=== PATIENT | female | born 1940 | race Caucasian/White ===

== ENCOUNTER 2018-09-01 06:26 | Inpatient (IN) | payer MEDICARE, OTHER ==
[~2018-09-01] VITALS: Ht 162.6 cm; Wt 90.7 kg
--- NOTE | 2018-09-01 06:35 | NUR ---
PT A/OX4, BIB RA909, C/O DIARRHEA SINCE LAST NIGHT (TOO MANY TO COUNT). PT REPORTS SHE WAS RECENTLY TESTED FOR C-DIFF AND WAS TOLD ON WEDNESDAY (08/29/18) THAT SHE WAS NEGATIVE FOR C-DIFF BY HER PCP. PT REPORTS NON-PROVOKED ABD PAIN, SHARP IN QUALITY, DOES NOT RADIATE, 02/28, CONSTANT. SECONDARY COMPLAINT: NAUSEA. 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 PT DENIES C/P, SOB, DIZZINESS, HEADACHE.
--- NOTE | 2018-09-01 06:38 | NUR ---
SUKHWINDER ISRAEL AT BEDSIDE FOR MSE.
[2018-09-01] MEDS ORDERED: SERT100T PO (06:48)
[2018-09-01] MEDS ORDERED: ATOR40TA PO (06:48)
[2018-09-01] MEDS ORDERED: OMEP40CA37 PO (06:48)
[2018-09-01] MEDS ORDERED: ONDANSETRON 4 MG/2 ML VIAL ONE ×2 (06:57→08:35)
--- NOTE | 2018-09-01 06:57 | NUR ---
SKIVER UPPERS OR LININGS AT BEDSIDE.
[2018-09-01] MEDS ORDERED: IV NORMAL SALINE 1000 ML BAG IV ONE (07:00)
[2018-09-01] MEDS ORDERED: ONDANSETRON 4 MG/2 ML VIAL IV ONE ×2 (07:00→09:00)
--- NOTE | 2018-09-01 07:03 | NUR ---
PT TAKEN TO RADIOLOGY FOR CT SCAN.
[2018-09-01 07:08] LABS: BASOPHILS % (AUTO) 0.3 % (0.0-2.0); EOSINOPHILS # (AUTO) 0.1 K/uL (0.0-0.7); EOSINOPHILS % (AUTO) 0.5 % (0.0-7.0); HEMATOCRIT 43.9 % (31.2-41.9); HEMOGLOBIN 14.8 g/dL (10.9-14.3); LYMPHOCYTES # (AUTO) 1.8 K/uL (20.0-40.0); MEAN CORPUSCULAR HEMOGLOBIN 28.8 uug (24.7-32.8); MEAN CORPUSCULAR HGB CONC 34 g/dL (32.3-35.6); MEAN CORPUSCULAR VOLUME 85.7 fL (75.5-95.3); MONOCYTES # (AUTO) 0.7 K/uL (2.0-10.0); MONOCYTES % (AUTO) 7.1 % (0.0-11.0); NEUTROPHILS # (AUTO) 7.6 K/uL (1.8-8.9); NEUTROPHILS % (AUTO) 74.1 % (38.5-71.5); PLATELET COUNT (AUTO) 206 K/uL (179-408); RED BLOOD CELL COUNT(AUTO) 5.13 MIL/uL (3.63-4.92); WHITE BLOOD COUNT (AUTO) 10.2 K/uL (3.8-11.8)
--- NOTE | 2018-09-01 07:10 | NUR ---
SHIFT REPORT GIVEN TO ADINA JOHNSON.
[2018-09-01 07:16] LABS: CARBON DIOXIDE 31 mmol/L (21-32); CHLORIDE 99 mmol/L (98-107); CREATININE 0.7 mg/dL (0.6-1.3); GLUCOSE 146 mg/dL (74-106); POTASSIUM 3.7 mmol/L (3.5-5.1); UREA NITROGEN, BLOOD 21 mg/dL (7-18)
[2018-09-01 07:22] LABS: ALANINE AMINOTRANSFERASE 54 U/L (14-59); ALKALINE PHOSPHATASE 90 U/L (50-136); ASPARTATE AMINOTRANSFERASE 29 U/L (15-37); BILIRUBIN,DIRECT 0.2 mg/dL (0.0-0.2); BILIRUBIN,TOTAL 0.6 mg/dL (0.2-1.0); LIPASE 84 U/L (73-393); TOTAL PROTEIN, SERUM 8.1 g/dL (6.4-8.2)
[2018-09-01 08:07] LABS: *BLOOD, URINE TRACE (NEGATIVE); *CLARITY,URINE CLEAR (CLEAR); *COLOR,URINE LIGHT YELLOW (YELLOW); UGLUCOSE NEGATIVE (NEGATIVE)
[2018-09-01 08:08] LABS: *BILIRUBIN,URIN NEGATIVE (NEGATIVE); *KETONES,URINE NEGATIVE (NEGATIVE); *UROBILINOGEN,URINE 0.2 E.U./dl (NORMAL); LEUKOCYTE ESTERASE ,URINE TRACE (NEGATIVE); NITRITE, URINE NEGATIVE (NEGATIVE)
[2018-09-01 08:15] LABS: BACTERIA,URINE FEW /HPF (NONE SEEN); RBC,URINE 0-3 /HPF (0-3); SQUAMOUS EPITHELIAL CELL,UR FEW /HPF (NONE SEEN)
[2018-09-01] MEDS ORDERED: MORPHINE SULFATE 2 MG/1 ML DISP.SYRIN ONE (08:35)
[2018-09-01] MEDS ORDERED: MORPHINE SULFATE 2 MG/1 ML DISP.SYRIN IV ONE (09:00)
--- NOTE | 2018-09-01 09:40 | NUR ---
pt transfered to floor in stable condition. pt deneid nausea or pain at this time. pt had ambulated to bathroom x2 with assisstance. pt did not have diarhea episode since 0700., while in er. pt friend at bedside the whole er stay.
[2018-09-01 10:00] VITALS: BP 145/60
--- NOTE | 2018-09-01 10:00 | NUR ---
PT RECEIVED TO CARE, STABLE, ABLE ANSWER QUESTIONS, PAIN IN ABDOMEN /10. VS ARE STABLE. PT IS AMBULATORY. DR. NAVARRO CONTACTED FOR ORDERS.
[2018-09-01] MEDS ORDERED: ACETAMINOPHEN 650 MG SUPP.RECT RC PRN (11:15)
[2018-09-01] MEDS ORDERED: MORPHINE SULFATE 2 MG/1 ML DISP.SYRIN IV PRN (11:15)
[2018-09-01] MEDS: IV D5 1/2 NS 1000 ML 1,000 ML IV PRN (12:48)
[2018-09-01] MEDS: ONDANSETRON 4 MG/2 ML VIAL IV PRN (13:19)
[2018-09-01 15:33] VITALS: BP 104/48
--- NOTE | 2018-09-01 18:00 | NUR ---
PT WAS ORDERED NG TUBE PLACEMENT WITH SUCTIONING. PT AGREED. PER DOCTOR RAMON, ORDERED TO PUT THE ORDER ON STAND BY, DEPENDING ON PATIENT'S CONDITION. NO VOMITING, NO BLOODEDNESS, NO PAIN AT THIS TIME. WILL CONTINUE TO MONITOR
[2018-09-01] MEDS ORDERED: PANTOPRAZOLE SODIUM 40 MG VIAL IV ONE (18:20)
[2018-09-01 20:15] VITALS: BP 103/49
[2018-09-01] MEDS: ALBUTEROL SULFATE 2.5 MG/3 ML NEBU NEB PRN (20:27)
[2018-09-02] MEDS: IV D5 1/2 NS 1000 ML 1,000 ML IV PRN (02:05)
[2018-09-02 06:16] VITALS: BP 105/52
--- NOTE | 2018-09-02 06:30 | NUR ---
PATIENT ASLEEP IN BED. EASILY AROUSABLE. SLEPT WELL. IVF INFUSING WELL. PATIENT KEPT NPO ORDERED. NO NAUSEA OR VOMITING NOTED THROUGHOUT THE NIGHT. NO NGT NOTED. DR. TREVIÑO AWARE. CALL LIGHT IN REACH. ALL NEEDS ATTENDED.
--- NOTE | 2018-09-02 07:00 | NUR ---
PATIENT RECEIVED SLEEPING IN BED NO DISTRESS NOTED IVF FLUIDS RUNNING, CALL LIGHT WITHIN REACH, SIDE RAILS UP X2 BED ALARM ON, CONTINUE TO MONITOR
[2018-09-02 07:06] LABS: BASOPHILS % (AUTO) 0.5 % (0.0-2.0); EOSINOPHILS # (AUTO) 0.1 K/uL (0.0-0.7); EOSINOPHILS % (AUTO) 1.4 % (0.0-7.0); HEMOGLOBIN 12.7 g/dL (10.9-14.3); LYMPHOCYTES # (AUTO) 2.6 K/uL (20.0-40.0); LYMPHOCYTES % (AUTO) 39.4 % (20.5-51.5); MEAN CORPUSCULAR HEMOGLOBIN 28.8 uug (24.7-32.8); MEAN CORPUSCULAR HGB CONC 34 g/dL (32.3-35.6); MEAN CORPUSCULAR VOLUME 86.1 fL (75.5-95.3); MONOCYTES # (AUTO) 0.5 K/uL (2.0-10.0); MONOCYTES % (AUTO) 7.4 % (0.0-11.0); NEUTROPHILS # (AUTO) 3.4 K/uL (1.8-8.9); NEUTROPHILS % (AUTO) 51.3 % (38.5-71.5); PLATELET COUNT (AUTO) 148 K/uL (179-408); RED BLOOD CELL COUNT(AUTO) 4.42 MIL/uL (3.63-4.92); WHITE BLOOD COUNT (AUTO) 6.7 K/uL (3.8-11.8)
[2018-09-02 07:12] LABS: ALANINE AMINOTRANSFERASE 37 U/L (14-59); ALKALINE PHOSPHATASE 74 U/L (50-136); ASPARTATE AMINOTRANSFERASE 26 U/L (15-37); BILIRUBIN,TOTAL 0.4 mg/dL (0.2-1.0); CARBON DIOXIDE 30 mmol/L (21-32); CHLORIDE 105 mmol/L (98-107); CREATININE 0.6 mg/dL (0.6-1.3); GLUCOSE 96 mg/dL (74-106); PHOSPHOROUS 4.7 mg/dL (2.5-4.9); POTASSIUM 3.9 mmol/L (3.5-5.1); UREA NITROGEN, BLOOD 13 mg/dL (7-18)
[2018-09-02 07:13] LABS: CHOLESTEROL 116 mg/dL (<200); HDL CHOLESTEROL 48 mg/dL (40-60); IRON, SERUM 40 ug/dL (50-175); TOTAL PROTEIN, SERUM 6.2 g/dL (6.4-8.2); TRIGLYCERIDES 91 MG/DL (30-150)
[2018-09-02 07:19] LABS: THYROID STIMULATING HORMONE 2.307 mIU/mL (0.358-3.740)
[2018-09-02] MEDS: ONDANSETRON 4 MG/2 ML VIAL IV PRN (08:45)
[2018-09-02 08:52] VITALS: BP 119/58
[2018-09-02] MEDS ORDERED: PANTOPRAZOLE SODIUM 40 MG VIAL IV SCH (09:00)
[2018-09-02] MEDS: ALBUTEROL SULFATE 2.5 MG/3 ML NEBU NEB PRN ×2 (09:09→18:09)
[2018-09-02] MEDS ORDERED: DIATR MEGLU/DIATRIZOATE SODIUM 30 ML SOLUTION ONE (09:16)
[2018-09-02 11:33] VITALS: BP 94/46
--- NOTE | 2018-09-02 12:00 | NUR ---
PATIENT ASSISTED TO BATH ROOM ABLE TO VERBALIZE NEEDS, DENIES ANY PAIN, NO N/V AT THIS TIME CONTINUE TO MONITOR
[2018-09-02] MEDS ORDERED: RANI150T43 PO (15:03)
[2018-09-02 15:33] VITALS: BP 94/46
--- NOTE | 2018-09-02 16:20 | NUR ---
PATIENT FREQUENTLY AMBULATING TO VOID AND HAVE BOWEL MOVEMENTS TODAY. PATIENT IV LINE INFILTRATED. MINIMAL SWELLING NOTED. DR NAVARRO NOTIFIED, STARTED ON FULL LIQUID DIET , PER MD D/S IV FLUIDS.
[2018-09-02 18:12] VITALS: BP 94/50
--- NOTE | 2018-09-02 18:29 | NUR ---
NO NG TUBE NEEDED AT THIS TIME, PER MD NO N/V CONTINUE TO MONITOR
--- NOTE | 2018-09-02 20:00 | NUR ---
RECEIVED PATIENT AWAKE IN BED WITH VISITORS AT BEDSIDE. PATIENT IS A/O X4. DENIES PAIN. NO RESP. DISTRESS NOTED. VSS. CALL LIGHT IN REACH. ALL NEEDS ATTENDED.
[2018-09-02 20:13] VITALS: BP 99/52
[2018-09-02] MEDS ORDERED: Z GUARD REMEDY PASTE 57 GM TUBE TOP PRN (22:15)
[2018-09-03] MEDS ORDERED: ACETAMINOPHEN 325 MG TABLET PO PRN (04:00)
[2018-09-03 06:22] VITALS: BP 100/39
--- NOTE | 2018-09-03 07:32 | NUR ---
PATIENT RESTING COMFORTABLY IN BED AT THIS TIME. NO SIGNS OF DISTRESS AT THIS TIME. CONTACT ISOLATION IMPLEMENTED FOR C.DIFF PRECAUTION. STABLE CONDITION. CALL LIGHT WITHIN REACH OF PATIENT. SAFETY MEASURES IMPLEMENTED. WILL CONTINUE TO MONITOR THROUGHOUT SHIFT.
[2018-09-03] MEDS: PANTOPRAZOLE SODIUM 40 MG TABLET.DR PO SCH (10:11)
[2018-09-03 11:06] VITALS: BP 110/44
[2018-09-03 15:14] VITALS: BP 105/53
[2018-09-03] MEDS: VANCOMYCIN FOR PO/GT/NG USE PO SCH (18:35)
--- NOTE | 2018-09-03 19:47 | NUR ---
RECEIVED PATIENT AWAKE AND ALERT IN BED. NO SIGNS OF ACUTE DISTRESS NOTED. PATIENT IS ON CONTACT ISOLATION FOR C.DIFF. NO COMPLAINTS OF PAIN OR SOB. DR. TREVIÑO IS AT BEDSIDE SPEAKING TO PATIENT. SAFETY MEASURES INITIATED. CALL LIGHT IS WITHIN REACH, BED IS LOW AND LOCKED. WILL CONTINUE TO MONITOR.
[2018-09-03 20:09] VITALS: BP 114/66
[2018-09-04] MEDS: VANCOMYCIN FOR PO/GT/NG USE PO SCH ×5 (00:03→23:59)
[2018-09-04 05:54] LABS: LYMPHOCYTES # (AUTO) 2.2 K/uL (20.0-40.0); MONOCYTES # (AUTO) 0.6 K/uL (2.0-10.0); WHITE BLOOD COUNT (AUTO) 6.6 K/uL (3.8-11.8)
[2018-09-04 05:58] LABS: BASOPHILS % (AUTO) 0.5 % (0.0-2.0); EOSINOPHILS # (AUTO) 0.2 K/uL (0.0-0.7); EOSINOPHILS % (AUTO) 2.7 % (0.0-7.0); HEMATOCRIT 39.5 % (31.2-41.9); HEMOGLOBIN 13.1 g/dL (10.9-14.3); LYMPHOCYTES % (AUTO) 33.7 % (20.5-51.5); MEAN CORPUSCULAR HEMOGLOBIN 28.5 uug (24.7-32.8); MEAN CORPUSCULAR HGB CONC 33 g/dL (32.3-35.6); MEAN CORPUSCULAR VOLUME 85.7 fL (75.5-95.3); MONOCYTES % (AUTO) 8.8 % (0.0-11.0); NEUTROPHILS # (AUTO) 3.6 K/uL (1.8-8.9); NEUTROPHILS % (AUTO) 54.3 % (38.5-71.5); PLATELET COUNT (AUTO) 135 K/uL (179-408)
[2018-09-04 05:59] VITALS: BP 124/59
[2018-09-04] MEDS: PANTOPRAZOLE SODIUM 40 MG TABLET.DR PO SCH (06:03)
[2018-09-04 06:10] LABS: ALANINE AMINOTRANSFERASE 31 U/L (14-59); ALKALINE PHOSPHATASE 70 U/L (50-136); ASPARTATE AMINOTRANSFERASE 21 U/L (15-37); BILIRUBIN,TOTAL 0.5 mg/dL (0.2-1.0); CARBON DIOXIDE 32 mmol/L (21-32); CHLORIDE 104 mmol/L (98-107); CREATININE 0.7 mg/dL (0.6-1.3); GLUCOSE 124 mg/dL (74-106); MAGNESIUM 2.2 mg/dL (1.8-2.4); PHOSPHOROUS 2.9 mg/dL (2.5-4.9); POTASSIUM 4.1 mmol/L (3.5-5.1); TOTAL PROTEIN, SERUM 6.4 g/dL (6.4-8.2); UREA NITROGEN, BLOOD 16 mg/dL (7-18)
--- NOTE | 2018-09-04 06:30 | NUR ---
PATIENT SLEPT WELL THROUGHOUT SHIFT. NO ACUTE DISTRESS NOTED. NO COMPLAINTS OF SOB OR PAIN. REMAINS ON CONTACT ISOLATION. GAVE ALL MEDICATION ORDERED. SAFETY MEASURES GIVEN
--- NOTE | 2018-09-04 07:25 | NUR ---
RECEIVED IN BED ASLEEP WITH EYES CLOSED BUT EASILY AROUSABLE ON ROUNDS SHE ON ON CONTACT ISOLATION AND PRECAUTION AT THIS TIME FOR POSITIVE C DIFF IN THE STOO BUT NO DIARRHEA REPORTED AT THIS TIME.MADE COMFORTABLE AND WILL CONTINUE TO OBSERVE.
[2018-09-04 11:02] VITALS: BP 101/49
--- NOTE | 2018-09-04 11:10 | NUR ---
PATIENT IS COMPLAINING OF ABDOMINAL PAIN BUT STATED THAT SHE DOES NOT NEED PAIN MEDICATIONS DENIES DIARRHEA DR NAVARRO AWARE WITH NO NEW ORDERS AT THIS TIME
[2018-09-04 15:08] VITALS: BP 107/54
--- NOTE | 2018-09-04 16:55 | NUR ---
PATIENT REASSIGNMENT AT THIS TIME REPORT GIVEN TO JAN PATIENT WAS SEEN BY WALLACE FISH WITH ORDER FOR LISSY TOMORROW REPORT GIVEN TO OBTAIN CONSCENT AND TO CONTINUE CARE OF THIS PATIENT.
--- NOTE | 2018-09-04 17:00 | NUR ---
patietn on bed, resting comfortably. aware of consent for egd , will read form for now. discussed npo after midnight, no breakfast tomorrow till otherwise any changes by gi md. verbalized understanding.
--- NOTE | 2018-09-04 17:30 | NUR ---
consent signed. seen by dr Johnson, talking about plan of care, patient agreeing to plan. tolerated dinner diet.
--- NOTE | 2018-09-04 18:33 | NUR ---
no acute distress. no nausea , vomiting or loose bm since reassignment. resting well, on phone prn with relatives and friends.
--- NOTE | 2018-09-04 19:30 | NUR ---
PATIENT ALERT AWAKE, NO SOB NO CHEST PAIN, NO COMPLAIN OF PAIN, REMAINS IN CONTACT ISOLATION FOR CDIFF. OBSERVED GOOD HANDWASHING. NO VOMITING NOTED. CALL LIGHT WITHIN REACH.
[2018-09-04 21:43] VITALS: BP 110/78
[2018-09-05 05:17] VITALS: BP 103/50
[2018-09-05] MEDS: PANTOPRAZOLE SODIUM 40 MG TABLET.DR PO SCH (06:14)
[2018-09-05] MEDS: VANCOMYCIN FOR PO/GT/NG USE PO SCH ×3 (06:15→17:10)
--- NOTE | 2018-09-05 06:43 | NUR ---
PATIENT AWAKE NO SOB NO CHEST PAIN, NO COMPLAIN OF PAIN AT THIS TIME. NO FURTHER EPISODES OF DIARRHEA NOTED. NPO AT THIS TIME. CONT TO MONITOR.
[2018-09-05 08:00] VITALS: BP 102/59
[2018-09-05 11:08] VITALS: BP 105/51
--- NOTE | 2018-09-05 11:40 | NUR ---
notified of pt's unhappiness due to cancelled EGD procedure. Pt. stating "I want procedure to be done today I don't want this to be prolonged any longer" A call back from for now pt. will remains NPO. until further orders.
[2018-09-05] MEDS: ALBUTEROL SULFATE 2.5 MG/3 ML NEBU NEB PRN (15:04)
[2018-09-05 15:28] VITALS: BP 95/49
[2018-09-05] MEDS ORDERED: VANC500V PO (17:07)
[2018-09-05] MEDS ORDERED: ATOR10TA PO (17:07)
[2018-09-05] MEDS ORDERED: ALBU8.5H8 INH (17:07)
[2018-09-05] MEDS ORDERED: FLUT1BLS IH (17:07)
--- NOTE | 2018-09-05 17:22 | NUR ---
Patient had a session of education with pharmacist Kashif who discussed her prescribed medications with her. DCD instructions given to pt. who verbalized understanding. IV RAC G-20 dcd. Patient AAOX4. Vital signs stable. 98.0, HR of 56, 99% on room air and sbp of 108/56.
--- NOTE | 2018-09-05 17:40 | NUR ---
Prescription faxed to [facility] pharmacy as requested by pt. and pharmacist Kashif after having an education session with patient
[2018-09-05 19:53] VITALS: BP 110/69
--- NOTE | 2018-09-05 22:00 | NUR ---
PATIENT DISCHARGE HOME, PICKED UP BY [employer] VIA PRIVATE CAR. PATIENT TOOK ALL BELONGINGS, TOOK NEW PRESCRIPTION SHEET PLUS ALL DISCHARGE PAPER WORKS. PATIENT FAIR AND STABLE CONDITION. AM NURSE FAX PRESCRIPTION TO PHARMACY OF CHOICE.
== END 2018-09-05 23:36 | disposition home health service (06) | DRG 372 ==
LOC: ER 06:30 → MEDSURG3 09:32
PROVIDERS: ADMIT Internal Medicine; ATTEND Internal Medicine
DX: A04.72 Enterocolitis due to Clostridium difficile, not specified as recurrent (principal); K56.600 Partial intestinal obstruction, unspecified as to cause; E44.0 Moderate protein-calorie malnutrition; Z68.34 Body mass index [BMI] 34.0-34.9, adult; K42.9 Umbilical hernia without obstruction or gangrene; N20.0 Calculus of kidney; J40 Bronchitis, not specified as acute or chronic; F90.9 Attention-deficit hyperactivity disorder, unspecified type; E78.5 Hyperlipidemia, unspecified; R73.03 Prediabetes; E66.9 Obesity, unspecified; K21.9 Gastro-esophageal reflux disease without esophagitis; R82.998 Other abnormal findings in urine; F42.8 Other obsessive-compulsive disorder; Z88.0 Allergy status to penicillin; Z88.2 Allergy status to sulfonamides; D18.09 Hemangioma of other sites; Z87.891 Personal history of nicotine dependence; Z90.49 Acquired absence of other specified parts of digestive tract; Z79.899 Other long term (current) drug therapy; F32.9 Major depressive disorder, single episode, unspecified
CPT/HCPCS: 36415; 70030-TC; 71045; 74250; 82378; 83550; 83690; 83735; 84100; 84443; 85025; 93005; 94640; 94664; A4663; C9113; G0378; J2270; J2405; J3370; J3490; J7030; J7042; Q9963